=== PATIENT | male | born 1990 | race Caucasian/White ===

== ENCOUNTER 2022-12-30 19:33 | Emergency (ER) | payer SELFPAY ==
--- NOTE | 2022-12-30 19:36 | ED.GENADULT ---
HPI - General Adult General Chief complaint: Wound/Laceration Stated complaint: peeled scab and been bleeding Time Seen by Provider: 12/30/22 20:15 Source: patient Mode of arrival: ambulatory Limitations: no limitations History of Present Illness HPI narrative: 32 year old male with no significant pmhx presents to the ED today with uncontrolled bleeding from his face after picking the skin on his face 2 hours prior to my evaluation. Patient states that he picked the skin infront of his left ear when it began bleeding. He has not been able to control the bleeding. He has gone through an entire roll of paper towels. He reports history of cysts. Not on AC. Endorses taking 8 shots of liquor prior to arrival. No other complaints at this time. Related Data Allergies Allergy/AdvReac Type Severity Reaction Status Date / Time codeine [CODEINE] Allergy Unknown NAUSEA Unverified 12/05/19 16:09 Review of Systems Review of Systems: Constitutional: No fever, chills, fatigue, night sweats, weight changes ENT/Mouth: No ear pain, hearing loss, nasal congestion, sinus pain, rhinorrhea, sore throat Cardio: No chest pain, palpitations, CANO, orthopnea, peripheral edema Pulm: No SOB, cough, sputum, wheezing, dyspnea, hemoptysis MSK: No back pain, neck pain, joint pain, myalgias Skin: No lesions, rashes Neuro: No weakness, numbness, paresthesias, LOC, dizziness, headache Heme/Lymph: No bruising, +bleeding, No lymphadenopathy All other systems reviewed and are negative. [facility] Past Medical History Attestation statement: The following information was validated with the patient. Source: old records reviewed and nursing notes reviewed Social History Social History Advance Directives: No Advance Directives Information Provided: No Physical Exam ED Vital Signs: Vital Signs - 24 hr 12/30/22 19:49 12/30/22 21:46 Temperature 98.7 F 98.3 F Pulse Rate 119 H 89 Respiratory Rate 16 16 Blood Pressure 159/95 H 140/66 H Pulse Oximetry 98 Oxygen Delivery Method Room Air Room Air BMI result Body Mass Index 36.9 Vital signs notable for tachycardia. Const Other: + tremulous General: cooperative, no acute distress, alert, awake and intoxicated appearing Orientation/consciousness: patient oriented x3 Limitations: no limitations HENMT Other: + oozing bright red blood from subcentimeter wound just anterior to left ear. No obvious mass. Head: Yes normal to inspection Ears: hearing grossly normal bilaterally General nose exam: Normal external nose present Face images: 1. Eyes Other: + bilateral conjunctival injection EOM: EOMs intact bilaterally Neck Neck: Yes normal visual inspection Resp Effort & Inspection: normal respiratory effort Auscultation: clear to auscultation bilaterally Cardio Rate: regular rate Rhythm: regular rhythm Heart sounds: S1 normal heart sound present and S2 normal heart sound present Peripheral pulses: Peripheral pulses 2+ throughout GI Inspection: Yes normal to inspection Palpation (GI): Soft to palpation, nontender, no guarding and hepatosplenomegaly present General: Yes no CVA tenderness Back/Spine/Pelvis Back: no CVA tenderness Skin General skin exam: no rashes or lesions noted Neuro General: patient oriented x3, gait normal and moves all extremities Cranial nerves: Yes CN's II-XII intact bilaterally Extrem General: Yes normal to inspection Course Course Course Narrative: RME- 32 year old male presents for evaluation of a wound to the left side of his head. He scratched a scab about 45 minutes prior to arrival. Patient has oozing from a subcentimeter wound on exam. He is not anticoagulated Reevaluation(s) Reevaluation #1: 6015-- Hemostasis of the area achieved with surgicel. The area will be wrapped with gauze and david wrap to keep surgicel attached. I advised the patient to keep this on until tomorrow morning. He was advised to dampen the surgicel prior to removal as to not cause the area to bleed again. Discussed return precautions. All questions answered. Patient agreeable with disposition and stable for discharge. > Hannah CUNNINGHAM in room to help with hemostasis Medical Decision Making Medical Decision Making MDM Narrative: 32 year old male with no significant pmhx presents to the ED today with uncontrolled bleeding from his face after picking the skin on his face 2 hours prior to my evaluation. Vital signs are stable. Patient is tremulous with bilateral conjunctival injection. There is a subcentimeter wound anterior to patient's left ear that is oozing bright red blood. This is likley an abrasion that the patient picked at or a cyst. Plan for surgicel for hemostasis and re-evaluation. Differential Diagnosis Differential Diagnoses: The differential diagnosis associated with the presentation includes As above. Admission/Observation Not indicated. Social Determinants Patient?s care significantly limited by Social Determinants of Health including: Other Social Determinant of Health Critical Care Time Critical Care Time Critical Care Time: No Discharge Plan Discharge Clinical Impression: Laceration Patient Disposition: Home, Self-Care Additional Instructions: The bleeding from your head was controlled with surgicel today. Leave the surgicel on until tomorrow morning. Wet/dampen the surgicel before removing or you may cause the area to bleed again. You have been provided surgicel to use in the case of re-bleed. Apply direct pressure for 10-15 minutes. If you continue to bleed again and are unable to control bleed, return to the ED. Interventions: ED Discharge Assessment Last Done: 12/30/22 22:19 Discharge Date/Time: 12/30/22 22:20
[2022-12-30 19:49] VITALS: BP 159/95; PULSE 119; RESP 16; TEMP 37.1; BMI 36.9
[2022-12-30 21:46] VITALS: BP 140/66; PULSE 89; RESP 16; TEMP 36.8; O2SAT 98
== END 2022-12-30 22:20 | disposition home or self-care (01) ==
PROVIDERS: Emergency Provider Internal Medicine
DX: S01.81XA Laceration without foreign body of other part of head, initial encounter (principal); X58.XXXA Exposure to other specified factors, initial encounter; Y93.9 Activity, unspecified; Y92.9 Unspecified place or not applicable; Y99.9 Unspecified external cause status
CPT/HCPCS: 12011; 99283

== ENCOUNTER 2023-02-24 11:17 | Inpatient (IN) | payer SELFPAY ==
--- NOTE | ~2023-02-24 | US_ITS ---
EXAMINATION: US ABDOMEN LIMITED CLINICAL INFORMATION: Abnormal liver function tests. COMPARISON: None available. TECHNIQUE: Real-time imaging of the right upper quadrant abdominal viscera. FINDINGS: Limited evaluation secondary to patient body habitus and shadowing from overlying bowel gas. PANCREAS: Not well seen. LIVER: Enlarged measuring 20 cm with increased echogenicity and heterogeneity of the liver parenchyma. No discrete focal mass. No intrahepatic biliary ductal dilatation. Trace perihepatic ascites. Patent main portal vein with hepatopedal flow. GALLBLADDER: The gallbladder is physiologically distended without evidence of stones, sludge, polyps, wall thickening or pericholecystic fluid. COMMON BILE DUCT: Normal in caliber measuring 0.6 cm in diameter. RIGHT KIDNEY: No hydronephrosis. No renal calculi or focal parenchymal lesions. The kidney measures 14 cm in maximum dimension. FREE FLUID: Trace perihepatic free fluid. US/US abdomen limited IMPRESSION: Limited evaluation secondary to patient body habitus and shadowing from overlying bowel gas. 1. Hepatomegaly with increased echogenicity and heterogeneity of the liver parenchyma, which could be seen in the setting of hepatic steatosis or hepatocellular disease. 2. Trace perihepatic ascites.
--- NOTE | ~2023-02-24 | XR_ITS ---
EXAMINATION: XR CHEST CLINICAL INFORMATION: Pain COMPARISON: None available. TECHNIQUE: 2 views of the chest were obtained. FINDINGS: No significant abnormality is noted involving the heart, lungs, mediastinum, or soft tissues. Degenerative changes and multiple mild compressions. XR/XR chest 2V IMPRESSION: No acute cardiopulmonary disease.
[2023-02-24 11:37] VITALS: BP 151/107; PULSE 120; RESP 18; TEMP 37; O2SAT 98; BMI 35.2
--- NOTE | 2023-02-24 11:39 | ED.GENADULT ---
HPI - General Adult General Chief complaint: Extremity Injury, Lower Stated complaint: swollen legs Time Seen by Provider: 02/24/23 16:19 Source: patient and old records reviewed Mode of arrival: ambulatory Limitations: no limitations History of Present Illness HPI narrative: 32 yo male with PMH of alcohol use disorder drinking 100 proof alcohol about a sleeve or more a day shakes but no seziures in the past. He notes he is not doing well recently and trying to stop this and THC - yellow eyes, enlarged abdomen, legs are swollen, gums are bleeding. Last drink 10am. He has mucousy yellow stools. This has never happened to him before. MD complaint: ETOH abuse now with concern for liver issues Onset (ago): week(s) (1) Location: abdomen, left, right and lower extremity Radiation: non-radiation Severity: moderate Relieving factors: none Exacerbating factors: other (drinking) Associated symptoms: other (edema, jaundice, ascites, gum bleeding, leg edema) Treatments prior to arrival: none Related Data Allergies Allergy/AdvReac Type Severity Reaction Status Date / Time codeine [CODEINE] Allergy Unknown NAUSEA Unverified 12/05/19 16:09 Review of Systems Review of Systems: Constitutional : No Fever, No Chills, pos Fatigue ENT/Mouth : No sore throat, No Rhinorrhea Eyes: No Eye Pain, No Swelling, No Redness Cardiovascular : No Chest Pain, No SOB, No Dyspnea on Exertion, pos edema Respiratory : No Cough, No Sputum Gastrointestinal : No Nausea, No Vomiting, No Diarrhea, No abdominal Pain, pos distention Genitourinary : No Dysuria, No Urinary Frequency, No Hematuria, Musculoskeletal : No joint pain, No Myalgias, No Joint Swelling Skin : No Skin Lesions, No rash, pos yellow eyes Neuro : No Weakness, No Numbness, No Dizziness, no Headache, pos shakes Psych : pos Anxiety/Panic, No Depression Heme/Lymph: No Bruising, pos Bleeding,No Lymphadenopathy Endocrine : No Polyuria, No Polydipsia All other systems reviewed and are negative [facility] Past Medical History Attestation statement: The following information was validated with the patient. Medical History Alcohol use disorder Social History Social History (Updated 02/24/23 @ 16:50 by Maggy Rosenbaum DO) Alcohol intake: current Alcohol intake frequency: 3 or more drinks per day Alcohol type: hard liquor Patient Tobacco Use Status: Tobacco use Unknown Smoked in Last 30 Days: No Use of substances other than those prescribed or required for medical reasons: No Substance Use Type: Marijuana Advance Directives: No Advance Directives Information Provided: Yes Physical Exam ED Vital Signs: Vital Signs - 24 hr 02/24/23 11:37 02/24/23 16:00 02/24/23 18:02 Temperature 98.6 F 98.1 F 98.2 F Pulse Rate 120 H 128 H 112 H Respiratory Rate 18 18 Blood Pressure 151/107 H 152/97 H 135/82 Pulse Oximetry 98 97 96 Oxygen Delivery Method Room Air Room Air Room Air BMI result Body Mass Index 35.2 Appearance: Alert. Oriented X3. No acute distress. Eyes: Pupils equal, round and reactive to light. Scleral icterus noted ENT: Pharynx normal. tonuge fasciculations Neck: Normal inspection. Neck supple. CVS: tachycardic heart rate and rhythm. Pulses normal. Respiratory: No respiratory distress. Breath sounds bases diminished Abdomen: Soft and nontender. Ascites moderate noted Skin: Skin warm and dry. pale skin color. Normal skin turgor. Extremities: 1+ pitting lower extremity edema. No calf ttp Neuro: Oriented X 3. No motor deficit. No sensory deficit. tremulous Course Course Course Narrative: RME- 32-year-old male presents for evaluation of leg swelling, gingival edema, insomnia. He reports subjective fevers and chills for several weeks. Afebrile in triage. Patient is not a known diabetic but reports he checked his sugar this morning and it was close 211. ? Reports that he is alcoholic and was drinking two sleeves of nips daily. He has been cutting down to once sleeve. Last drink was this more. Plan for labs EKG Medications Administered Generic Name Dose Route Start Last Admin Trade Name Freq PRN Reason Stop Dose Admin Magnesium Sulfate 2 gm in 50 mls @ 25 mls/hr 02/24/23 16:22 02/24/23 16:53 Magnesium Sulfate/H2o IV 02/24/23 18:21 25 mls/hr ONCE ONE Administration Discontinued Medications Generic Name Dose Route Start Last Admin Trade Name Freq PRN Reason Stop Dose Admin Thiamine HCl 200 mg/ Sodium 102 mls @ 204 mls/hr 02/24/23 16:28 02/24/23 16:50 Chloride IV 02/24/23 16:57 204 mls/hr ONCE ONE Administration Phenobarbital Sodium 339.3 mg 02/24/23 17:00 02/24/23 16:53 Phenobarbital Sodium 130 Mg/Ml Im Once IM 02/24/23 17:01 339.3 mg ONCE ONE Administration Protocol Potassium Chloride 40 meq 02/24/23 16:22 02/24/23 16:52 Potassium Chloride Packet 20 Meq Packet PO 02/24/23 16:23 40 meq ONCE ONE Administration Medical Decision Making Medical Decision Making [facility] Narrative: 32 yo male here with hx of ETOH abuse now exhibiting signs of withdrawal - has lyte abnormalities, low platelets and elevated LFTs - will replete mag and K, start on thiamine and phenobarb - obtain US of liver as well. Planned admit for further workup of likely alcoholic hepatitis and withdrawal. I actually just saw him when he was visiting his twin brother who also has substance issues and Kb looked nothing like this 1 month ago which was quite shocking. Differential Diagnosis Differential Diagnoses: The differential diagnosis associated with the presentation includes alcoholic hepatitis, lyte abnormality, alcohol use disorder Admission/Observation Consideration of admission/observation: Escalation of care including admission/observation considered will admit for further workup Consult Healthcare Provider Management of the patient was discussed with: Hospitalist (will admit) Lab Data [facility] Lab Attestation statement: I reviewed the patient's lab results. 02/24/23 12:19 02/24/23 12:19 Labs: Lab Results 02/24/23 Range/Units 12:19 WBC 11.1 H (4.8-10.8) X10*3/uL RBC 4.09 L (4.60-5.80) X10*6/uL Hgb 13.5 L (14.0-18.0) g/dl Hct 38.1 L (42.0-52.0) % MCV 93.2 (80.0-98.0) fL MCH 33.0 (27.0-33.0) pg MCHC 35.4 (31.0-36.0) g/dl RDW 16.3 H (11.0-16.0) % Plt Count 83 L (160-400) X10*3/uL MPV 11.2 (9.4-12.4) fL Immature Gran % (Auto) 0.4 (0.0-0.4) % Neut % (Auto) 71.9 (45-73) % Lymph % (Auto) 19.2 L (20-40) % [place] % (Auto) 6.9 (2-11) % Eos % (Auto) 0.5 (0-4) % Baso % (Auto) 1.1 (0-2) % Lymph # (Auto) 2.1 (1.2-4.9) X10*3/uL [place] # (Auto) 0.8 (0.1-1.2) X10*3/uL Eos # (Auto) 0.1 (0.0-0.4) X10*3/uL Baso # (Auto) 0.1 (0.0-0.2) X10*3/uL Abs Immat Gran (auto) 0.04 H (0.00-0.03) X10*3/uL Absolute Neuts (auto) 8.0 (2.0-8.3) x10*3/uL Absolute Nucleated RBC 0.000 (0.0-0.012) X10*3/uL Nucleated RBC % (auto) 0.0 (0.0-0.2) /100WBC PT 18.5 H (11.1-13.3) SEC INR 1.5 H (0.9-1.1) APTT 46.6 H (26.0-36.4) SEC Sodium 140 (135-145) mmol/L Potassium 3.1 L (3.3-5.1) mmol/L Chloride 103 (96-108) mmol/L Carbon Dioxide 27 (22-29) mmol/L Anion Gap 13 (12-20) BUN 4 L (9-16) mg/dL Creatinine 0.61 (0.5-1.4) mg/dL Estim Creat Clear Calc 212.4 Estimated GFR > 60 Random Glucose 180 H (60-115) mg/dL Calcium 8.6 (8.4-10.2) mg/dL Magnesium 1.4 L* (1.6-2.6) mg/dL Total Bilirubin 4.2 H (0.0-1.0) mg/dL AST 328 H (5-37) U/L ALT 53 H (0-40) U/L Alkaline Phosphatase 206 H (39-117) U/L B-Natriuretic Peptide 188 H (<100) pg/mL Total Protein 8.7 H (6.5-8.0) g/dL Albumin 3.5 (3.5-5.0) g/dL Lipase 54 (8-78) U/L Beta-Hydroxybutyrate 0.19 (0.02-0.27) mmol/L Ethyl Alcohol 290 mg/dL Independent Interpretation I performed an independent interpretation of an: EKG, Plain X-Ray (no edema) and Ultrasound (enlarged liver) Interpretation: Rate: 108 Rhythm: sinus tachycardic [place]: normal Normal P waves. Normal LOREN. Normal QRS complex. ST T wave : no JORGE, normal qTC: prolonged prior studies: no prior The study has been interpreted contemporaneously by me. . Radiology Impression Discussion of test interpretation with radiology: I have reviewed the radiologist's reading. Independent Historian Clinical information obtained from an independent historian. History obtained from or confirmed by: Friend External Record Review External record reviewed: Inpatient record Social Determinants Patient?s care significantly limited by Social Determinants of Health including: Alcoholism and drug addiction in family Critical Care Time Critical Care Time Critical Care Time: Yes Total Critical Care Time: 45 Attestation: repletions of lytes, phenobarb protocol, admisison I attest to this time spent taking care of the patient Discharge Plan Discharge Clinical Impression: Alcohol use disorder, Hypomagnesemia, Acute hypokalemia, Acute alcoholic hepatitis, Thrombocytopenia Patient Disposition: Admitted As Inpatient
--- NOTE | 2023-02-24 11:41 | ECG_ITS ---
Test Reason : arrhythmia Blood Pressure : / mmHG Vent. Rate : 108 BPM Atrial Rate : 108 BPM P-R Int : 168 ms QRS Dur : 100 ms QT Int : 368 ms P-R-T Axes : 066 041 047 degrees QTc Int : 493 ms Sinus tachycardia Prolonged QT Abnormal ECG No previous ECGs available Referred By: Michael Jasso Electronically Signed By:REAGAN RAMOS
[2023-02-24 12:24] LABS: MANUAL DIFF FLAG NO
[2023-02-24 12:33] LABS: INTERNATIONAL NORM RATIO 1.5 (0.9-1.1); Prothrombin Time 18.5 SEC (11.1-13.3)
[2023-02-24 12:36] LABS: Partial Thromboplastin Time 46.6 SEC (26.0-36.4)
[2023-02-24 12:37] LABS: Basophils Absolute Auto 0.1 X10*3/uL (0.0-0.2); Basophils Percent Auto 1.1 % (0-2); Eosinophils Absolute Auto 0.1 X10*3/uL (0.0-0.4); Eosinophils Percent Auto 0.5 % (0-4); Hematocrit 38.1 % (42.0-52.0); Hemoglobin 13.5 g/dl (14.0-18.0); Imm Gran Abs Auto 0.04 X10*3/uL (0.00-0.03); Imm Gran Pct Auto 0.4 % (0.0-0.4); Lymphocytes Absolute Auto 2.1 X10*3/uL (1.2-4.9); Lymphocytes Percent Auto 19.2 % (20-40); Mean Corpuscular HGB Conc 35.4 g/dl (31.0-36.0); Mean Corpuscular Volume 93.2 fL (80.0-98.0); Mean Platelet Volume 11.2 fL (9.4-12.4); Monocytes Absolute Auto 0.8 X10*3/uL (0.1-1.2); Monocytes Percent Auto 6.9 % (2-11); Neutrophils Percent Auto 71.9 % (45-73); Red Blood Count 4.09 X10*6/uL (4.60-5.80); Red Cell Distribution Width 16.3 % (11.0-16.0); White Blood Count 11.1 X10*3/uL (4.8-10.8)
[2023-02-24 12:42] LABS: Ethanol 290 mg/dL
[2023-02-24 12:45] LABS: B Type Natriuretic Peptide 188 pg/mL (<100)
[2023-02-24 12:46] LABS: Beta-Hydroxybutyrate 0.19 mmol/L (0.02-0.27)
[2023-02-24 12:49] LABS: Platelet Count 83 X10*3/uL (160-400)
[2023-02-24 13:05] LABS: Alanine Aminotransferase 53 U/L (0-40); Albumin Level 3.5 g/dL (3.5-5.0); Alkaline Phosphatase 206 U/L (39-117); Anion Gap 13 (12-20); Aspartate Amino Transferase 328 U/L (5-37); Bilirubin Total 4.2 mg/dL (0.0-1.0); Blood Urea Nitrogen 4 mg/dL (9-16); Calcium 8.6 mg/dL (8.4-10.2); Carbon Dioxide 27 mmol/L (22-29); Chloride 103 mmol/L (96-108); Creatinine Clr Calc Pharmacy 212.4; Estimated Glomerular Filt Rate > 60; Glucose Random 180 mg/dL (60-115); Lipase 54 U/L (8-78); Magnesium 1.4 mg/dL (1.6-2.6); Potassium 3.1 mmol/L (3.3-5.1); Sodium 140 mmol/L (135-145); Total Protein 8.7 g/dL (6.5-8.0)
[2023-02-24 16:00] VITALS: BP 152/97; PULSE 128; RESP 18; TEMP 36.7; O2SAT 97
[2023-02-24] MEDS: Thiamine HCL 200 MG in 0.9 % Sodium Chloride 100 ML 204 MG IV (16:50)
[2023-02-24] MEDS: Potassium Chloride Packet 20 MEQ PACKET 40 MEQ PO (16:52)
[2023-02-24] MEDS: PHENobarbitaL sodium 130 MG/ML IM ONCE 339.3 MG IM (16:53)
[2023-02-24] MEDS: Magnesium Sulfate/H2O 2 GM/50 ML PIGGYBACK IV (16:53)
--- NOTE | 2023-02-24 17:10 | PC.NURSE ---
PT resting in bed, in no apparent distress, respirations even and unlabored. Ultrasound at bedside. Call brito within reach.
[2023-02-24 18:02] VITALS: BP 135/82; PULSE 112; TEMP 36.8; O2SAT 96
[2023-02-24] MEDS: Furosemide 20 MG/2 ML VIAL IVPUSH (18:12)
[2023-02-24] MEDS: Potassium Chloride/H20 10 MEQ/100 ML PIGGYBACK 100 MEQ IV ×2 (18:12→20:22)
--- NOTE | 2023-02-24 18:23 | PHA.MEDREC ---
Pharmacy Consult ? Medication Reconciliation Pharmacy has completed the medication reconciliation. Patient reported he just started a multivitamin. Reported that he took a half a tablet of ativan. Angelia Brown, LisbetD
--- NOTE | 2023-02-24 18:31 | P.HPHOSP_ITS ---
History of Present Illness Date of Service: 02/24/23 Chief Complaint: le edema, weakness 32M PMH alcohol dependence presented with 1-2 weeks of lower extremity edema, general feeling unwell, swollen gums with bleeding, generalized bloating, yellowing of skin in stool, dark urine. In ED noted to have elevated bilirubin, thrombocytopenia, hepatomegaly on ultrasound, elevated INR. Patient reports recent cutting down of alcohol intake due to not feeling well, starting to feel jittery. [facility] Medical History Alcohol use disorder Social History (Updated 02/24/23 @ 16:50 by Maggy Rosenbaum DO) Alcohol intake: current Alcohol intake frequency: 3 or more drinks per day Alcohol type: hard liquor Patient Tobacco Use Status: Tobacco use Unknown Smoked in Last 30 Days: No Use of substances other than those prescribed or required for medical reasons: No Substance Use Type: Marijuana Advance Directives: No Advance Directives Information Provided: Yes Meds Allergies Allergy/AdvReac Type Severity Reaction Status Date / Time codeine [CODEINE] Allergy Unknown NAUSEA Verified 02/24/23 18:27 Active Medications: Current Medications Potassium Chloride (Potassium Chloride/H20) 10 meq in 100 mls @ 100 mls/hr IV Q1H YESI Stop: 02/24/23 19:44 Last Admin: 02/24/23 18:12 Dose: 100 mls/hr Multivitamins/Vitamin C (Multivitamin Tablet) 1 tab PO DAILY [facility] Pharmacy Consult (Consult Rx Etoh Phenob Im/Po) 1 each MISCELLANE ONCE PRN; Protocol PRN Reason: Consult order Phenobarbital (Phenobarbital 15 Mg Tablet) 45 mg PO BID [facility]; Protocol Stop: 02/26/23 21:01 Phenobarbital (Phenobarbital 30 Mg Tablet) 30 mg PO BID [facility]; Protocol Stop: 02/28/23 21:01 Phenobarbital (Phenobarbital 15 Mg Tablet) 15 mg PO DAILY [facility]; Protocol Stop: 03/02/23 09:01 Phenobarbital Sodium (Phenobarbital Sodium 130 Mg/Ml Vial Im Q3hx2) 254.8 mg IM Q3H YESI; Protocol Stop: 02/24/23 23:01 Home Medications Medication Instructions Recorded Confirmed Last Taken Type multivitamin 1 tab PO DAILY 02/24/23 02/24/23 Unknown History Physical Exam 2 Vital Signs and Narrative: Vital Signs: Last Vital Signs Temp 98.2 F 12/08/23 18:02 Pulse 112 H 02/24/23 18:02 Resp 18 02/24/23 16:00 BP 135/82 02/24/23 18:02 Pulse Ox 96 02/24/23 18:02 O2 Del Method Room Air 02/24/23 18:02 BMI result Body Mass Index 35.2 General: AO X 3, no acute distress, jaundiced, swollen gums Resp: CTA bilateral, no accessory muscles used CVS: S1,S2,RRR, 3+ bialteral edema GI: soft, mild ruq tender, non distended Neuro: motor grossly intact, alert Psych: appropriate affect, appropriate insight Results Labs 02/24/23 12:19 02/24/23 12:19 Labs: Laboratory Results - last 24 hr 02/24/23 12:19 MCV 93.2 MCH 33.0 MCHC 35.4 RDW 16.3 H Plt Count 83 L MPV 11.2 Immature Gran % (Auto) 0.4 Neut % (Auto) 71.9 Lymph % (Auto) 19.2 L [place] % (Auto) 6.9 Eos % (Auto) 0.5 Baso % (Auto) 1.1 Lymph # (Auto) 2.1 [place] # (Auto) 0.8 Eos # (Auto) 0.1 Baso # (Auto) 0.1 Abs Immat Gran (auto) 0.04 H Absolute Neuts (auto) 8.0 Absolute Nucleated RBC 0.000 Nucleated RBC % (auto) 0.0 PT 18.5 H INR 1.5 H APTT 46.6 H Anion Gap 13 Estim Creat Clear Calc 212.4 Estimated GFR > 60 Random Glucose 180 H Calcium 8.6 Magnesium 1.4 L* Total Bilirubin 4.2 H AST 328 H ALT 53 H Alkaline Phosphatase 206 H B-Natriuretic Peptide 188 H Total Protein 8.7 H Albumin 3.5 Lipase 54 Beta-Hydroxybutyrate 0.19 Ethyl Alcohol 290 Imaging Radiologist's Impressions: Impressions Chest X-Ray 02/24/23 11:58 IMPRESSION: No acute cardiopulmonary disease. Abdomen Ultrasound 02/24/23 17:10 IMPRESSION: Limited evaluation secondary to patient body habitus and shadowing from overlying bowel gas. 1. Hepatomegaly with increased echogenicity and heterogeneity of the liver parenchyma, which could be seen in the setting of hepatic steatosis or hepatocellular disease. 2. Trace perihepatic ascites. Assessment and Plan (1) Acute alcoholic hepatitis: Status: Acute Plan 32M PMH etoh dependence presented with bloating, feeling unwell Acute alcoholic hepatitis Complicated by thrombocytopenia, elevated INR, jaundice, anasarca Alcohol abstinence, monitor LFTs, GI eval Alcohol dependence with withdrawal CIWA, phenobarb Hypomagnesemia and hypokalemia Replace and monitor hyperglycemia follow up a1c DVT prophylaxis - mechanical due to thrombocytopenia Full code Patient with acute alcoholic hepatitis which can be life-threatening as wells alcohol withdrawal, will likely take at least 2 midnights inpatient to treat. Quality Stroke Does the patient have a stroke diagnosis?: No VTE Prior VTE?: No VTE Risk Level:: Medical - moderate - high VTE Device Contraindication: N/A - Device Ordered VTE Drug Contraindication: Treatment Not Tolerated
[2023-02-24 18:45] LABS: Appearance Urine Clear; Color Urine Dark Yellow; Glucose Urine UA Negative (Negative); Leukocyte Esterase Urine Trace (Negative); Nitrite Urine Negative (Negative); UMIC TRIGGER UACC YES; Urine Blood Moderate (2+) (Negative); Urine Ketones Negative (Negative); Urine Protein 300 (3+) mg/dL (Neg-Trace)
[2023-02-24 18:50] LABS: Bacteria Urine None Seen (None Seen); Hyaline Casts Urine 0-2 /LPF (0-2); Squamous Epithelial Cell Urine 0-2 /HPF (0-2); WBC Urine 0-5 /HPF (0-5)
[2023-02-24 20:20] VITALS: BP 129/78; PULSE 111; RESP 20; O2SAT 96
[2023-02-24] MEDS: PHENobarbitaL sodium 130 MG/ML VIAL IM Q3Hx2 254.8 MG IM ×2 (20:23→22:59)
[2023-02-24 22:39] VITALS: RESP 12
[2023-02-24] MEDS: Morphine Sulfate 2 MG/ML CARTRIDGE IVPUSH (22:39)
--- NOTE | 2023-02-24 22:47 | PC.NURSE ---
PT resting in bed, reports 10/10 bilateral leg pain. Order for Morphine obtained and given, effect pending.
[2023-02-24 23:00] VITALS: BP 122/72; PULSE 115; RESP 20; TEMP 36.7; O2SAT 95
[2023-02-24] MEDS: 0.9 % Sodium Chloride Flush 3 ML SYRINGE IVFLUSH (23:04)
[2023-02-25] VITALS (10 sets, daily range): BP systolic 125–145; BP diastolic 74–93; PULSE 97–117; RESP 14–22; TEMP 36.8–37.6; O2SAT 94–98; BMI 34.1
--- NOTE | 2023-02-25 01:09 | PC.NURSE ---
PT reporting bilateral leg pain 10/10. Reports Morphine did provide some relief earlier but the pain has returned. PT appears restless. VS stable. MD Notified, awaiting further orders.
[2023-02-25] MEDS: PHENobarbitaL sodium 130 MG/ML VIAL 260 MG IM (01:53)
[2023-02-25] MEDS: Lactated Ringers 1,000 ML 999 ML IV (01:54)
[2023-02-25] MEDS: Magnesium Sulfate/H2O 2 GM/50 ML PIGGYBACK IV (02:10)
--- NOTE | 2023-02-25 02:11 | PC.NURSE ---
New orders given, see MAR. VS stable at this time. PT resting in bed, respirations even and unlabored, in no apparent distress. Call brito within reach.
--- NOTE | 2023-02-25 02:43 | PC.NURSE ---
PT appears to be sleeping with eye closed, respirations even and unlabored, in no apparent distress.
[2023-02-25 03:46] LABS: Estimated Average Glucose 137 mg/dL; Hemoglobin A1c % 6.4 % (<6.0)
[2023-02-25] MEDS: Haloperidol Lactate 5 MG/ML VIAL IM (04:15)
[2023-02-25 06:34] LABS: Hematocrit 34.3 % (42.0-52.0); Hemoglobin 11.9 g/dl (14.0-18.0); Mean Corpuscular HGB Conc 34.7 g/dl (31.0-36.0); Mean Corpuscular Hemoglobin 32.4 pg (27.0-33.0); Mean Corpuscular Volume 93.5 fL (80.0-98.0); Mean Platelet Volume 11.1 fL (9.4-12.4); Red Blood Count 3.67 X10*6/uL (4.60-5.80); Red Cell Distribution Width 15.9 % (11.0-16.0); White Blood Count 9.2 X10*3/uL (4.8-10.8)
[2023-02-25 06:36] LABS: Platelet Count 66 X10*3/uL (160-400)
[2023-02-25 06:45] LABS: Alanine Aminotransferase 47 U/L (0-40); Albumin Level 3.1 g/dL (3.5-5.0); Alkaline Phosphatase 177 U/L (39-117); Anion Gap 15 (12-20); Aspartate Amino Transferase 302 U/L (5-37); Bilirubin Direct 2.5 mg/dL (0.0-0.5); Bilirubin Total 4.9 mg/dL (0.0-1.0); Blood Urea Nitrogen 4 mg/dL (9-16); Carbon Dioxide 25 mmol/L (22-29); Chloride 102 mmol/L (96-108); Estimated Glomerular Filt Rate > 60; Glucose Fasting 128 mg/dL (60-99); Magnesium 1.5 mg/dL (1.6-2.6); Phosphorus 2.7 mg/dL (2.7-4.5); Potassium 3.4 mmol/L (3.3-5.1); Sodium 139 mmol/L (135-145); Total Protein 7.6 g/dL (6.5-8.0)
[2023-02-25 07:10] LABS: INTERNATIONAL NORM RATIO 1.6 (0.9-1.1); Prothrombin Time 18.9 SEC (11.1-13.3)
[2023-02-25] MEDS: Magnesium Oxide 400 MG TABLET PO ×2 (08:29→17:22)
[2023-02-25] MEDS: Multivitamin TABLET 1 TAB PO (08:39)
[2023-02-25] MEDS: PHENobarbitaL 15 MG TABLET 45 MG PO ×2 (08:39→21:35)
[2023-02-25] MEDS: 0.9 % Sodium Chloride Flush 3 ML SYRINGE IVFLUSH ×3 (08:47→21:36)
--- NOTE | 2023-02-25 10:11 | PC.NURSE ---
this RN resumed care of pt at this time. pt resting comfortably in bed in no apparent distress. vss and up to date aside from being sinus tachy on the cardiac nurse specialist. pt waiting admission/transfer upstairs at this time. pt verbalizing no pain at this time. updated CIWA = 5. pt tremulous/feeling anxious - denies any other withdrawal sx. no sob/wob noted. respirations even and unlabored. call brito placed within reach.
--- NOTE | 2023-02-25 10:28 | P.PNIM_ITS ---
Subjective Subjective Date of Service: 02/25/23 Interval History: tremulous Physical Exam 2 Vital Signs: Vital Signs: Last Vital Signs Temp 98.4 F 02/25/23 09:47 Pulse 112 H 02/25/23 09:47 Resp 14 02/25/23 09:47 BP 145/77 H 02/25/23 09:47 Pulse Ox 95 02/25/23 09:47 O2 Del Method Room Air 02/25/23 09:47 BMI result Body Mass Index 35.2 General: AO X 3, no acute distress, jaundice, some tremor Resp: CTA bilateral, no accessory muscles used CVS: S1,S2,RRR, 2+ edema GI: soft, non tender, non distended Neuro: motor grossly intact, alert Psych: appropriate affect, appropriate insight Objective Data Active Medications Magnesium Oxide (Magnesium Oxide 400 Mg Tablet) 400 mg PO BIDPC [facility] Last Admin: 02/25/23 08:29 Dose: 400 mg Documented By: CINTIA Multivitamins/Vitamin C (Multivitamin Tablet) 1 tab PO DAILY [facility] Last Admin: 02/25/23 08:39 Dose: 1 tab Documented By: CINTIA Pharmacy Consult (Consult Rx Etoh Phenob Im/Po) 1 each MISCELLANE ONCE PRN; Protocol PRN Reason: Consult order Phenobarbital (Phenobarbital 15 Mg Tablet) 45 mg PO BID [facility]; Protocol Stop: 02/26/23 21:01 Last Admin: 02/25/23 08:39 Dose: 45 mg Documented By: CINTIA Phenobarbital (Phenobarbital 30 Mg Tablet) 30 mg PO BID [facility]; Protocol Stop: 02/28/23 21:01 Phenobarbital (Phenobarbital 15 Mg Tablet) 15 mg PO DAILY [facility]; Protocol Stop: 03/02/23 09:01 Sodium Chloride (0.9 % Sodium Chloride Flush 3 Ml Syringe) 3 ml IVFLUSH QSHIFT [facility] Last Admin: 02/25/23 08:47 Dose: 3 ml Documented By: CINTIA Labs 02/25/23 06:04 02/25/23 06:04 Labs: Laboratory Results - last 24 hr 02/24/23 02/24/23 02/25/23 12:19 18:37 06:04 MCV 93.2 93.5 MCH 33.0 32.4 MCHC 35.4 34.7 RDW 16.3 H 15.9 Plt Count 83 L 66 L MPV 11.2 11.1 Immature Gran % (Auto) 0.4 Neut % (Auto) 71.9 Lymph % (Auto) 19.2 L Cal[place] % (Auto) 6.9 Eos % (Auto) 0.5 Baso % (Auto) 1.1 Lymph # (Auto) 2.1 [place] # (Auto) 0.8 Eos # (Auto) 0.1 Baso # (Auto) 0.1 Abs Immat Gran (auto) 0.04 H Absolute Neuts (auto) 8.0 Absolute Nucleated RBC 0.000 0.000 Nucleated RBC % (auto) 0.0 0.0 PT 18.5 H 18.9 H INR 1.5 H 1.6 H APTT 46.6 H Anion Gap 13 15 Estim Creat Clear Calc 212.4 240.0 Estimated GFR > 60 > 60 Random Glucose 180 H Fasting Glucose 128 H Estimat Average Glucose 137 Hemoglobin A1c % 6.4 H Calcium 8.6 8.0 L D Phosphorus 2.7 Magnesium 1.4 L* 1.5 L Total Bilirubin 4.2 H 4.9 H Direct Bilirubin 2.5 H AST 328 H 302 H ALT 53 H 47 H Alkaline Phosphatase 206 H 177 H B-Natriuretic Peptide 188 H Total Protein 8.7 H 7.6 Albumin 3.5 3.1 L Lipase 54 Beta-Hydroxybutyrate 0.19 Urine Color Dark Yellow Urine Appearance Clear Urine pH 7.0 Ur Specific Dilliner 1.020 Urine Protein 300 (3+) H Urine Glucose (UA) Negative Urine Ketones Negative Urine Blood Moderate (2+) H Urine Nitrite Negative Ur Leukocyte Esterase Trace H Urine RBC 11-20 H Urine WBC 0-5 Ur Squamous Epith Cells 0-2 Urine Bacteria None Seen Hyaline Casts 0-2 Phenobarbital 16.0 Ethyl Alcohol 290 Assessment and Plan (1) Thrombocytopenia: Status: Acute Plan 32M PMH etoh dependence presented with bloating, feeling unwell Acute alcoholic hepatitis Complicated by thrombocytopenia, elevated INR, jaundice, anasarca Alcohol abstinence, monitor LFTs (inr, tbili slightly increased today), GI eval Alcohol dependence with withdrawal CIWA, phenobarb Hypomagnesemia and hypokalemia Replace and monitor preDM with hyperglycemia due to stress a1c - 6.4 DVT prophylaxis - mechanical due to thrombocytopenia Full code reason for continued hospitalization:ongoing withdrawal Quality Stroke Does the patient have a stroke diagnosis?: No VTE Prior VTE?: No VTE Risk Level:: Medical - moderate - high VTE Device Contraindication: N/A - Device Ordered VTE Drug Contraindication: Treatment Not Tolerated
--- NOTE | 2023-02-25 11:14 | PM.EVENT ---
Event Note Date of Service: 03/21/23 Event Note: GI consult dictated Alcoholic hepatitis. continue phenobarbital for withdrawal. prednisone unlikely to benefit based on labs. advised pt to avoid alcohol. Time Spent With Patient Time: Total time managing care of this patient today ____ minutes.
[2023-02-25] MEDS: Phytonadione (Vit K1) 10 MG in 0.9 % Sodium Chloride 50 ML 51 MG IV (11:53)
--- NOTE | 2023-02-25 12:12 | PC.NURSE ---
vss and up to date at this time. pt remains slightly tachy on the residential monitor. pt verbalizing pain level in legs bilaterally increased to 4/10 at this time. updated CIWA = 5 at this time. pt has no other complaints. pt still awaits bed assignment at this time. medication administered per provider order. respirations even and unlabored. call brito placed within reach.
--- NOTE | 2023-02-25 12:17 | CONS_ITS ---
DATE OF SERVICE: 02/25/2023 REFERRING PHYSICIAN: Phil Nowak MD REASON FOR CONSULTATION: Alcoholic hepatitis. HISTORY OF PRESENT ILLNESS: The patient is a pleasant 32-year-old man admitted to the hospital after presenting to the emergency room with complications relating to alcohol use. He reports drinking upwards of 1.5 L of alcohol on a daily basis and noticed swelling in the lower extremities for about 1 to 2 weeks prior to admission. He has also had some bleeding from his gums, abdominal bloating, and some darkening of his urine with slight yellowing of his skin. He was evaluated in the emergency department with laboratory studies, which showed elevation of his liver enzymes in a pattern consistent with alcohol. Ultrasound imaging showed enlarged liver with perihepatic ascites. He has had withdrawal symptoms in the past. A blood alcohol level on admission was elevated at 290 yesterday at 12 noon. PAST MEDICAL HISTORY: The patient denies other medical or surgical illnesses. He has had gout. He does not see a doctor regularly. CURRENT MEDICATIONS: Current medication list is reviewed in the chart. ALLERGIES: THERE ARE NO REPORTED DRUG ALLERGIES. FAMILY HISTORY: This is reviewed with the patient and is noncontributory. SOCIAL HISTORY: He formally smoked marijuana and tobacco, but has discontinued both of these. REVIEW OF SYSTEMS: SKIN: No pruritus. HEENT: Negative. CARDIOPULMONARY: No shortness of breath or chest pain. GASTROINTESTINAL: As above. GENITOURINARY: Negative. NEUROPSYCHIATRIC: Negative. PHYSICAL EXAMINATION: GENERAL: Shows a pleasant male, lying comfortably in bed. VITAL SIGNS: Reviewed in the electronic medical record and are remarkable for a resting tachycardia. SKIN: Mildly icteric. HEENT: Shows minimal scleral icterus. NECK: Without lymphadenopathy or thyromegaly. LUNGS: Clear. HEART: Shows regular rate and rhythm. S1, S2. No murmur. ABDOMEN: Protuberant and distended. There is no tenderness, guarding, or rebound. Bowel sounds are present. I do not appreciate ascites on physical examination. EXTREMITIES: Show mild edema. LABORATORY DATA: Reviewed. IMPRESSION: Alcoholic hepatitis. I discussed the need to cease alcohol with Kb. He appears to understand this and appears motivated. He is still mildly tremulous on examination and has a resting tachycardia consistent with withdrawal. I would recommend continuing supportive care with no phenobarbital as you are doing. Vitamin K has been ordered for his elevated INR in case some of this dietary related. Based on his laboratory studies, it does not appear that prednisone would be beneficial at this time. Thank you for asking me to see him. I will follow him in the hospital with you. MD MELINA Caraballo/AB / [phone]
--- NOTE | 2023-02-25 15:18 | MHC.CM.PN ---
This CM attempted to meet with pt, he is sleeping, attempted to wake pt without success. CM will continue to attempt to meet with pt and follow.
--- NOTE | 2023-02-25 15:39 | PC.NURSE ---
pt remains calm/cooperative/no apparent distress at this time. updated CIWA = 9 at this time. pt has no complaints aside from being uncomfortable in bed. pt repositioned to comfort. respirations remain even and unlabored. call brito placed within reach.
--- NOTE | 2023-02-25 17:25 | PC.NURSE ---
pt remains sinus tachy on the monitor. pt verbalizes pain and withdrawal sx have subsided at this time. updated CIWA = 0. medication administered per provider order. respirations remain even and unlabored. tech bedside obtaining patient belongings list.
--- NOTE | 2023-02-25 19:34 | PC.NURSE ---
admission worksheet complete - will notify transport.
[2023-02-26] VITALS (7 sets, daily range): BP systolic 122–141; BP diastolic 66–78; PULSE 78–107; RESP 17–20; TEMP 36.2–37.6; O2SAT 94–98
[2023-02-26 07:00] LABS: Hematocrit 35.8 % (42.0-52.0); Hemoglobin 12.6 g/dl (14.0-18.0); Mean Corpuscular HGB Conc 35.2 g/dl (31.0-36.0); Mean Corpuscular Hemoglobin 33.2 pg (27.0-33.0); PLT CLUMP 1
[2023-02-26 07:02] LABS: INTERNATIONAL NORM RATIO 1.5 (0.9-1.1); Mean Corpuscular Volume 94.5 fL (80.0-98.0); Mean Platelet Volume 11.2 fL (9.4-12.4); Prothrombin Time 18.5 SEC (11.1-13.3); Red Blood Count 3.79 X10*6/uL (4.60-5.80); Red Cell Distribution Width 15.6 % (11.0-16.0)
[2023-02-26 07:13] LABS: White Blood Count 8.4 X10*3/uL (4.8-10.8)
[2023-02-26 07:14] LABS: Platelet Count 62 X10*3/uL (160-400)
[2023-02-26 07:21] LABS: Alanine Aminotransferase 44 U/L (0-40); Albumin Level 3.2 g/dL (3.5-5.0); Alkaline Phosphatase 175 U/L (39-117); Anion Gap 15 (12-20); Aspartate Amino Transferase 253 U/L (5-37); Bilirubin Direct 3.5 mg/dL (0.0-0.5); Blood Urea Nitrogen 6 mg/dL (9-16); Calcium 8.4 mg/dL (8.4-10.2); Carbon Dioxide 25 mmol/L (22-29); Chloride 99 mmol/L (96-108); Creatinine Clr Calc Pharmacy 228.1; Estimated Glomerular Filt Rate > 60; Glucose Fasting 123 mg/dL (60-99); Magnesium 1.5 mg/dL (1.6-2.6); Potassium 3.7 mmol/L (3.3-5.1); Sodium 135 mmol/L (135-145); Total Protein 7.9 g/dL (6.5-8.0)
[2023-02-26] MEDS: Magnesium Oxide 400 MG TABLET PO ×2 (08:25→18:07)
[2023-02-26] MEDS: Multivitamin TABLET 1 TAB PO (08:25)
[2023-02-26] MEDS: 0.9 % Sodium Chloride Flush 3 ML SYRINGE IVFLUSH ×3 (08:25→20:36)
[2023-02-26] MEDS: PHENobarbitaL 15 MG TABLET 45 MG PO ×2 (08:25→20:36)
--- NOTE | 2023-02-26 09:14 | P.PNIM_ITS ---
Subjective Subjective Date of Service: 02/26/23 Interval History: tremulous improving Physical Exam 2 Vital Signs: Vital Signs: Last Vital Signs Temp 97.8 F 02/26/23 07:23 Pulse 105 H 02/26/23 07:23 Resp 18 02/26/23 07:23 BP 141/78 H 02/26/23 07:23 Pulse Ox 95 02/26/23 07:23 O2 Del Method Room Air 02/26/23 07:23 BMI result Body Mass Index 34.1 General: AO X 3, no acute distress, jaundice, some tremor Resp: CTA bilateral, no accessory muscles used CVS: S1,S2,RRR, 2+ edema GI: soft, non tender, non distended Neuro: motor grossly intact, alert Psych: appropriate affect, appropriate insight Objective Data Active Medications Magnesium Sulfate (Magnesium Sulfate/H2o) 2 gm in 50 mls @ 25 mls/hr IV ONCE ONE Stop: 02/26/23 11:12 Magnesium [facility]ide ([facility] 400 Mg [facility] Admin: 02/26/23 08:25 Dose: 400 mg Documented By: EDMOND Multivitamins/Vitamin C (Multivitamin Tablet) 1 tab PO DAILY [facility] Last Admin: 02/26/23 08:25 Dose: 1 tab Documented By: EDMOND Pharmacy Consult (Consult Rx Etoh Phenob Im/Po) 1 each MISCELLANE ONCE PRN; Protocol PRN Reason: Consult order Phenobarbital (Phenobarbital 15 Mg Tablet) 45 mg PO BID [facility]; Protocol Stop: 02/26/23 21:01 Last Admin: 02/26/23 08:25 Dose: 45 mg Documented By: EDMOND Phenobarbital (Phenobarbital 30 Mg Tablet) 30 mg PO BID [facility]; Protocol Stop: 02/28/23 21:01 Phenobarbital (Phenobarbital 15 Mg Tablet) 15 mg PO DAILY [facility]; Protocol Stop: 03/02/23 09:01 Sodium Chloride (0.9 % Sodium Chloride Flush 3 Ml Syringe) [facility] Last Admin: 02/26/23 08:25 Dose: 3 ml Documented By: EDMOND Labs 02/26/23 06:02 02/26/23 06:02 Labs: Laboratory Results - last 24 hr 02/26/23 06:02 MCV 94.5 MCH 33.2 H MCHC 35.2 RDW 15.6 Plt Count 62 L MPV 11.2 Absolute Nucleated RBC 0.000 Nucleated RBC % (auto) 0.0 PT 18.5 H INR 1.5 H Anion Gap 15 Estim Creat Clear Calc 228.1 Estimated GFR > 60 Fasting Glucose 123 H Calcium 8.4 Magnesium 1.5 L Total Bilirubin 7.0 H Direct Bilirubin 3.5 H AST 253 H ALT 44 H Alkaline Phosphatase 175 H Total Protein 7.9 Albumin 3.2 L Assessment and Plan (1) Thrombocytopenia: Status: Acute Plan 32M PMH etoh dependence presented with bloating, feeling unwell Acute alcoholic hepatitis Complicated by thrombocytopenia, elevated INR, jaundice, anasarca Alcohol abstinence, monitor LFTs still increasing bili, gi appreciated - would not benefit from steroids at this time Alcohol dependence with withdrawal CIWA, phenobarb Hypomagnesemia and hypokalemia Replace and monitor preDM with hyperglycemia due to stress a1c - 6.4 DVT prophylaxis - mechanical due to thrombocytopenia Full code reason for continued hospitalization:ongoing withdrawal Quality Stroke Does the patient have a stroke diagnosis?: No VTE Prior VTE?: No VTE Risk Level:: Medical - moderate - high VTE Device Contraindication: N/A - Device Ordered VTE Drug Contraindication: Treatment Not Tolerated
[2023-02-26] MEDS: Magnesium Sulfate/H2O 2 GM/50 ML PIGGYBACK IV (10:10)
--- NOTE | 2023-02-26 10:19 | MHC.CM.PN ---
Pt lives at home with his brother, is self-care. Pts girlfriend will transport him home. HCP declined. No health insurance, and No PCP.
[2023-02-27 02:37] VITALS: BP 129/77; PULSE 114; RESP 18; TEMP 36.6; O2SAT 97
[2023-02-27 06:51] LABS: Hematocrit 36.3 % (42.0-52.0); Hemoglobin 12.9 g/dl (14.0-18.0); Mean Corpuscular HGB Conc 35.5 g/dl (31.0-36.0); Mean Corpuscular Hemoglobin 33.5 pg (27.0-33.0); Mean Corpuscular Volume 94.3 fL (80.0-98.0); Mean Platelet Volume 11.7 fL (9.4-12.4); Red Blood Count 3.85 X10*6/uL (4.60-5.80); Red Cell Distribution Width 15.9 % (11.0-16.0)
[2023-02-27 06:52] LABS: Platelet Count 81 X10*3/uL (160-400)
[2023-02-27 06:56] LABS: INTERNATIONAL NORM RATIO 1.5 (0.9-1.1); Prothrombin Time 17.9 SEC (11.1-13.3)
[2023-02-27 07:15] LABS: Alanine Aminotransferase 41 U/L (0-40); Albumin Level 3.4 g/dL (3.5-5.0); Alkaline Phosphatase 174 U/L (39-117); Anion Gap 13 (12-20); Aspartate Amino Transferase 206 U/L (5-37); Bilirubin Total 5.5 mg/dL (0.0-1.0); Blood Urea Nitrogen 9 mg/dL (9-16); Calcium 8.5 mg/dL (8.4-10.2); Carbon Dioxide 26 mmol/L (22-29); Chloride 100 mmol/L (96-108); Creatinine Clr Calc Pharmacy 190.6; Estimated Glomerular Filt Rate > 60; Glucose Fasting 123 mg/dL (60-99); Magnesium 1.9 mg/dL (1.6-2.6); Potassium 3.6 mmol/L (3.3-5.1); Sodium 135 mmol/L (135-145); Total Protein 8.3 g/dL (6.5-8.0)
[2023-02-27 07:40] VITALS: BP 137/72; PULSE 97; RESP 17; TEMP 37.3; O2SAT 97
[2023-02-27] MEDS: Magnesium Oxide 400 MG TABLET PO (08:00)
[2023-02-27] MEDS: Multivitamin TABLET 1 TAB PO (08:00)
[2023-02-27] MEDS: PHENobarbitaL 30 MG TABLET PO (08:00)
[2023-02-27] MEDS: 0.9 % Sodium Chloride Flush 3 ML SYRINGE IVFLUSH (08:01)
--- NOTE | 2023-02-27 08:04 | PM.DS ---
DS: Providers Provider Date of Service: 02/27/23 Date of admission: 02/24/23 18:30 Primary care physician: None Physician Consults: 02/24/23 18:30 Consult to Gastroenterology Routine Consulting Provider: Augustin Castellanos Reason for consultation: acute etoh hepatitis DS: Diagnosis Discharge Diagnosis (1) Thrombocytopenia: Status: Acute DS: Summary Hospital Course Hospital Course: from initial hpi: 32M PMH alcohol dependence presented with 1-2 weeks of lower extremity edema, general feeling unwell, swollen gums with bleeding, generalized bloating, yellowing of skin in stool, dark urine. In ED noted to have elevated bilirubin, thrombocytopenia, hepatomegaly on ultrasound, elevated INR. Patient reports recent cutting down of alcohol intake due to not feeling well, starting to feel jittery. hospital course: Patient was admitted for acute alcoholic hepatitis complicated by thrombocytopenia elevated INR, jaundice, anasarca. Patient was educated on alcohol abstinence. His liver function has slowly improved. He was seen by Gastroenterology and should continue follow up outpatient. For alcohol dependence with withdrawal he was given phenobarbital protocol and withdrawal symptoms resolved. For hypomagnesemia and hypokalemia he receive supplement and this improved. Patient noted to have pre diabetes with hyperglycemia and a hemoglobin A1c of 6.4. This should continue to be monitored outpatient, for obesity weight loss is recommended. Patient is feeling better will be discharged home. Time Attestation Discharge coordination time: Greater than 30 minutes Quality: Safe Use of Opioids Does Pt have an Active Cancer Diagnosis on the Problem List?: No Quality: Stroke Does the patient have a stroke diagnosis?: No Physical Exam Vital Signs: Vital Signs: Last Vital Signs Temp 99.1 F 02/27/23 07:40 Pulse 97 02/27/23 07:40 Resp 17 02/27/23 07:40 BP 137/72 02/27/23 07:40 Pulse Ox 97 02/27/23 07:40 O2 Del Method Room Air 02/27/23 07:40 BMI result Body Mass Index 34.1 General: AO X 3, no acute distress, jaundice, some tremor Resp: CTA bilateral, no accessory muscles used CVS: S1,S2,RRR, 2+ edema GI: soft, non tender, non distended Neuro: motor grossly intact, alert Psych: appropriate affect, appropriate insight DS: Data Data Completed and Pending Labs on day of discharge: Laboratory Results - last 24 hr 02/27/23 06:16 WBC 10.0 RBC 3.85 L Hgb 12.9 L Hct 36.3 L MCV 94.3 MCH 33.5 H MCHC 35.5 RDW 15.9 Plt Count 81 L D MPV 11.7 Absolute Nucleated RBC 0.000 Nucleated RBC % (auto) 0.0 PT 17.9 H INR 1.5 H Sodium 135 Potassium 3.6 Chloride 100 Carbon Dioxide 26 Anion Gap 13 BUN 9 Creatinine 0.67 Estim Creat Clear Calc 190.6 Estimated GFR > 60 Fasting Glucose 123 H Calcium 8.5 Magnesium 1.9 Total Bilirubin 5.5 H Direct Bilirubin 3.0 H AST 206 H ALT 41 H Alkaline Phosphatase 174 H Total Protein 8.3 H Albumin 3.4 L Discharge Plan Discharge Anticipated Discharge Date/Time: 02/27/23 08:02 Patient Disposition: Home, Self-Care Discharge Diagnosis: etoh hepatitis and withdrawal Referrals: Augustin Castellanos MD [Physician] - 1 Week Physician,None [Primary Care Provider] - 1 Week Discharge Medications: Continued multivitamin Tablet 1 tab PO DAILY Discharge Orders: Discharge Order (Routine); Ordered 02/27/23 Ordered By: Phil Nowak Diet: Advance to usual diet Activity on Discharge: As tolerated Stand Alone Forms: Patient Portal Discharge page Care Plan Goals: recovery Health Concerns: etoh dependence and hepatitis, pre diabetes Plan of Treatment: avoid etoh, follow up with GI, obtain health insurance, monitor prediabetes Assessment: see above
--- NOTE | 2023-02-27 12:02 | MHC.CM.PN ---
pt medically cleared home self-care and discharged home prior to this note.
== END 2023-02-27 08:53 | disposition home or self-care (01) | DRG 433 ==
LOC: HO.ED 17:32 → HO.EDOVER 18:39 → HO.IMC 02-25 19:32
PROVIDERS: Internal Medicine; Physician Assistant; Admitting Provider Internal Medicine; Emergency Provider Emergency Medicine; Visit Provider Internal Medicine
DX: K70.10 Alcoholic hepatitis without ascites (principal); F10.239 Alcohol dependence with withdrawal, unspecified; D69.6 Thrombocytopenia, unspecified; E66.9 Obesity, unspecified; Z71.3 Dietary counseling and surveillance; Y90.8 Blood alcohol level of 240 mg/100 ml or more; E83.42 Hypomagnesemia; R73.03 Prediabetes; Z68.34 Body mass index [BMI] 34.0-34.9, adult; E87.6 Hypokalemia; Z87.891 Personal history of nicotine dependence; Z79.899 Other long term (current) drug therapy
CPT/HCPCS: 36415; 71046; 76705; 80048; 80053; 80076; 80184; 80307; 81001; 82010; 83036; 83690; 83735; 83880; 84100; 85025; 85027; 85610; 85730; 93005; 99285; J1630; J1940; J2270; J2560; J3411; J3430; J3475; J3480; J7120

== ENCOUNTER → 2023-02-24 11:41 | Outpatient (BNV) | payer SELFPAY | PROVIDERS: Visit Provider Internal Medicine | DX: I45.81 Long QT syndrome (principal) | CPT/HCPCS: 93010 ==

== ENCOUNTER → 2023-02-24 18:30 | Outpatient (BNV) | payer SELFPAY | PROVIDERS: Admitting Provider Internal Medicine; Emergency Provider Emergency Medicine; Visit Provider Internal Medicine | DX: D69.6 Thrombocytopenia, unspecified (principal) | CPT/HCPCS: 99223; 99233; 99239 ==

== ENCOUNTER 2023-03-23 06:46 | Emergency (ER) | payer OTHER, SELFPAY ==
[2023-03-23 06:58] VITALS: BP 125/59; PULSE 76; RESP 16; TEMP 36.8; O2SAT 97; BMI 35.4
[2023-03-23 08:36] LABS: MANUAL DIFF FLAG NO
[2023-03-23 08:42] LABS: Basophils Absolute Auto 0.1 X10*3/uL (0.0-0.2); Basophils Percent Auto 0.7 % (0-2); Eosinophils Absolute Auto 0.2 X10*3/uL (0.0-0.4); Eosinophils Percent Auto 1.9 % (0-4); Hematocrit 35.4 % (42.0-52.0); Hemoglobin 12.2 g/dl (14.0-18.0); Imm Gran Abs Auto 0.03 X10*3/uL (0.00-0.03); Imm Gran Pct Auto 0.3 % (0.0-0.4); Lymphocytes Absolute Auto 1.9 X10*3/uL (1.2-4.9); Lymphocytes Percent Auto 18.7 % (20-40); Mean Corpuscular HGB Conc 34.5 g/dl (31.0-36.0); Mean Corpuscular Hemoglobin 33.2 pg (27.0-33.0); Mean Corpuscular Volume 96.5 fL (80.0-98.0); Mean Platelet Volume 9.6 fL (9.4-12.4); Monocytes Absolute Auto 0.6 X10*3/uL (0.1-1.2); Monocytes Percent Auto 5.4 % (2-11); Neutrophils Absolute Auto 7.5 x10*3/uL (2.0-8.3); Platelet Count 190 X10*3/uL (160-400); Red Blood Count 3.67 X10*6/uL (4.60-5.80); Red Cell Distribution Width 14.3 % (11.0-16.0); White Blood Count 10.3 X10*3/uL (4.8-10.8)
[2023-03-23 08:56] LABS: Alanine Aminotransferase 34 U/L (0-40); Albumin Level 3.6 g/dL (3.5-5.0); Alkaline Phosphatase 87 U/L (39-117); Anion Gap 13 (12-20); Aspartate Amino Transferase 85 U/L (5-37); Bilirubin Direct 1.2 mg/dL (0.0-0.5); Bilirubin Total 2.8 mg/dL (0.0-1.0); Blood Urea Nitrogen 7 mg/dL (9-16); Calcium 9.4 mg/dL (8.4-10.2); Carbon Dioxide 24 mmol/L (22-29); Chloride 103 mmol/L (96-108); Estimated Glomerular Filt Rate > 60; Glucose Random 144 mg/dL (60-115); Lipase 34 U/L (8-78); Sodium 136 mmol/L (135-145); Total Protein 7.7 g/dL (6.5-8.0)
[2023-03-23 08:59] LABS: B Type Natriuretic Peptide 312 pg/mL (<100)
[2023-03-23 11:18] VITALS: BP 142/66; PULSE 62; RESP 16; TEMP 36.1; O2SAT 99
[2023-03-23 16:32] VITALS: BP 135/78; PULSE 83; RESP 20; TEMP 36.8; O2SAT 97
--- NOTE | 2023-03-23 18:12 | ED.EXTPRO ---
HPI - Extremity Problem General Chief complaint: Extremity Problem Stated complaint: ??? Time Seen by Provider: 03/23/23 18:11 Source: patient and old records reviewed Mode of arrival: ambulatory Limitations: no limitations History of Present Illness HPI Narrative: 32 yo male with recent admission for alcoholic hepatitis - treated for ETOH withdrawal, had LE edema on DC and it has persisted. He was not sent home on diuretics he denies CP/SOB orthopnea. He was in waiting room for 11 hours and states he is not going to wait anymore does not want admission wants diuretics and will follow up if it worsens MD Complaint: extremity swelling Onset (ago): week(s) (few) Pain Consistency: constant Location: left, right and lower extremity Quality: dull Radiation: none Relieving factors: nothing Exacerbating factors: nothing Associated symptoms: denies other symptoms Context: other (recent admission for ETOH hepatitis) Related Data Home Medications Medication Instructions Recorded Confirmed multivitamin 1 tab PO DAILY 02/24/23 02/24/23 Previous Rx's Medication Instructions Recorded furosemide 20 mg tablet (Lasix) 20 mg PO DAILY #7 tabs 03/23/23 potassium chloride 20 mEq 20 meq PO DAILY #7 tabs 03/23/23 tablet,extended release Allergies Allergy/AdvReac Type Severity Reaction Status Date / Time codeine [CODEINE] Allergy Unknown NAUSEA Verified 02/24/23 18:27 Review of Systems Review of Systems: Constitutional : No Fever, No Chills ENT/Mouth : No Ear Pain, No Hoarseness, No sore throat Eyes: No Eye Pain, No Swelling, No Redness, No Foreign Body Cardiovascular : No Chest Pain, No SOB, pos edema Respiratory : No Cough, No Dyspnea Gastrointestinal : No Nausea, No Vomiting, No Diarrhea, No abdominal Pain Genitourinary : No Dysuria, No Hematuria Musculoskeletal : positive joint pain, No Myalgias, No Joint Swelling Skin : No Skin lacerations, No rash Neuro : No Weakness, No Numbness, No Loss of Consciousness, No Dizziness, No Headache Psych : No Anxiety/Panic, No Depression All other systems reviewed and are negative PMFSH Past Medical History Source: old records reviewed Onset Date is defined in the Problem List Problems that require an onset date and time if occurred within 24 hrs of arrival to the ED Aortic Dissection and Rupture; Neurologic impairment; Cardiopulmonary Arrest; Endotracheal Intubation; Insertion or Replacement of Mechanical Circulatory Assist Device Medical History Alcohol use disorder Social History Social History Household Members: Other Household Members Other:: brother Housing: Apartment Do you presently have visiting nurse or other home services: No Alcohol intake: current Alcohol intake frequency: 3 or more drinks per day Alcohol type: hard liquor Patient Tobacco Use Status: Former Tobacco user Tobacco use type: Cigarette Substance Use Type: Marijuana Advance Directives: No service: No Physical Exam Vital Signs: Vital Signs: Last Vital Signs Temp 98.2 F 03/23/23 16:32 Pulse 83 03/23/23 16:32 Resp 20 03/23/23 16:32 BP 135/78 03/23/23 16:32 Pulse Ox 97 03/23/23 16:32 O2 Del Method Room Air 03/23/23 16:32 BMI result Body Mass Index 35.4 Appearance: Alert. Oriented X3. No acute distress. Eyes: Pupils equal, round and reactive to light. ENT: Pharynx normal. Neck: Normal inspection. Neck supple. CVS: Normal heart rate and rhythm. Pulses normal. Respiratory: No respiratory distress. Breath sounds normal. Abdomen: Soft and nontender. Skin: Skin warm and dry. Normal skin color. Normal skin turgor. Extremities: 1-2+ pitting lower extremity edema. No calf ttp Neuro: Oriented X 3. No motor deficit. No sensory deficit. Medical Decision Making Medical Decision Making [facility] Narrative: 32 yo male with alcoholic hepatitis here with c/o leg edema no hx of CHF not on diuretics has edema on CXR but refuses to stay has no CP/SOB only wants lasix and DC. I offered admission he is not drinking he refuses to stay will start on lasix and K for 1 week and strict precautions to return. He declines admission after repeat ask. DVT negative Differential Diagnosis Differential Diagnoses: The differential diagnosis associated with the presentation includes hepatitis, CHF, DVT Admission/Observation Consideration of admission/observation: Escalation of care including admission/observation considered refuses to stay for admission it was offered Lab Data [facility] Lab Attestation statement: I reviewed the patient's lab results. 03/23/23 08:32 03/23/23 08:32 Labs: Lab Results 03/23/23 Range/Units 08:32 WBC 10.3 (4.8-10.8) X10*3/uL RBC 3.67 L (4.60-5.80) X10*6/uL Hgb 12.2 L (14.0-18.0) g/dl Hct 35.4 L (42.0-52.0) % MCV 96.5 (80.0-98.0) fL MCH 33.2 H (27.0-33.0) pg MCHC 34.5 (31.0-36.0) g/dl RDW 14.3 (11.0-16.0) % Plt Count 190 D (160-400) X10*3/uL MPV 9.6 (9.4-12.4) fL Immature Gran % (Auto) 0.3 (0.0-0.4) % Neut % (Auto) 73.0 (45-73) % Lymph % (Auto) 18.7 L (20-40) % Johnston % (Auto) 5.4 (2-11) % Eos % (Auto) 1.9 (0-4) % Baso % (Auto) 0.7 (0-2) % Lymph # (Auto) 1.9 (1.2-4.9) X10*3/uL Johnston # (Auto) 0.6 (0.1-1.2) X10*3/uL Eos # (Auto) 0.2 (0.0-0.4) X10*3/uL Baso # (Auto) 0.1 (0.0-0.2) X10*3/uL Abs Immat Gran (auto) 0.03 (0.00-0.03) X10*3/uL Absolute Neuts (auto) 7.5 (2.0-8.3) x10*3/uL Absolute Nucleated RBC 0.000 (0.0-0.012) X10*3/uL Nucleated RBC % (auto) 0.0 (0.0-0.2) /100WBC Sodium 136 (135-145) mmol/L Potassium 4.0 (3.3-5.1) mmol/L Chloride 103 (96-108) mmol/L Carbon Dioxide 24 (22-29) mmol/L Anion Gap 13 (12-20) BUN 7 L (9-16) mg/dL Creatinine 0.67 (0.5-1.4) mg/dL Estim Creat Clear Calc 194.0 Estimated GFR > 60 Random Glucose 144 H (60-115) mg/dL Calcium 9.4 D (8.4-10.2) mg/dL Total Bilirubin 2.8 H (0.0-1.0) mg/dL Direct Bilirubin 1.2 H (0.0-0.5) mg/dL AST 85 H (5-37) U/L ALT 34 (0-40) U/L Alkaline Phosphatase 87 (39-117) U/L B-Natriuretic Peptide 312 H (<100) pg/mL Total Protein 7.7 (6.5-8.0) g/dL Albumin 3.6 (3.5-5.0) g/dL Lipase 34 (8-78) U/L Independent Interpretation I performed an independent interpretation of an: EKG, Plain X-Ray and Ultrasound Interpretation: Rate: 60 Rhythm: NSR [place]: normal Normal P waves. Normal LOREN. Normal QRS complex. ST T wave : normal no JORGE qTC: 466 prior studies: no acute ischemia The study has been interpreted contemporaneously by me. . Radiology Impression Discussion of test interpretation with radiology: I have reviewed the radiologist's reading. External Record Review External record reviewed: Inpatient record Prescription Management I considered prescription management with: Other Discharge Plan Discharge Clinical Impression: Pedal edema Patient Disposition: Home, Self-Care Instructions: Leg Edema (ED) Additional Instructions: take the diuretic for the next week - return for chest pain, trouble breathing, inability to urinate, increased pillow use. please monitor your salt intake if it gets worse please return you could have CHF - this needs further workup. please try to get a PCP you were offered admission but declined - you can come back at any time. Prescriptions: New furosemide [Lasix] 20 mg tablet 20 mg PO DAILY Qty: 7 0RF potassium chloride 20 mEq tablet extended release 20 meq PO DAILY Qty: 7 0RF No Action multivitamin Tablet 1 tab PO DAILY Referrals: Han Woodard MD [Physician] - (call to schedule appointment - observer electrical prospecting)
== END 2023-03-23 18:36 | disposition home or self-care (01) ==
PROVIDERS: Emergency Provider Emergency Medicine
DX: R60.0 Localized edema (principal); I51.7 Cardiomegaly; K70.10 Alcoholic hepatitis without ascites; F10.90 Alcohol use, unspecified, uncomplicated; F12.90 Cannabis use, unspecified, uncomplicated; Z87.891 Personal history of nicotine dependence
CPT/HCPCS: 36415; 71045; 80053; 82248; 83690; 83880; 85025; 93005; 93970; 99284

== ENCOUNTER → 2023-03-23 18:10 | Outpatient (BNV) | payer OTHER, SELFPAY | PROVIDERS: Emergency Provider Emergency Medicine; Visit Provider Internal Medicine Cardiovascular Disease | DX: R60.0 Localized edema (principal) | CPT/HCPCS: 93010 ==